=== PATIENT | female | born 1995 | race American Indian/Alaskan Native ===

== ENCOUNTER 2017-09-15 17:09 | Emergency (ER) | payer MEDICAID ==
[2017-09-15 17:09] VITALS: BMI 25.8
[2017-09-15 17:12] VITALS: O2SAT 100
[2017-09-15] MEDS ORDERED: Sodium Chloride 0.9% 1,000 ML IV STA (17:37)
[2017-09-15] MEDS ORDERED: Methotrexate 50 mg/2 ml Inj IM ONE (18:15)
--- NOTE | 2017-09-15 18:29 | CP.PCM.CON ---
<Lora Saunders - Last Filed: 09/15/17 19:01> History of Present Illness - History of Present Illness History of Present Illness: 22 y/o Female , transferred from [facility] for evaluation and treatment of ectopic . Patient initially presented to ER c/o several days of lower abdominal discomfort associated with vaginal bleeding, which patient initially presumed to be her menses. Patient reports pain was different than her usual menses pain. Patient denies any fever, chills, nausea, vomiting or vaginal discharge. Patient is sexually active, last sexual activity a week ago, w/o any protection use. Patient has no intention of getting . ER course: BHcG 3640, WBC 17.8, RH+, Trans Vaginal US: suspicious for an ectopic PMH: Pyelonephritis PSH: Eye surgery x 3 Allg: NKDA Meds: None OBGYN: No hx of STDs, hx of 2 previous abortions Sexual Hx: active with 1 partner, no protection SH: Denies alcohol/smoking or drug use FH: Denies ROS: As per HPI VS: reviewed Review of Systems - Review of Systems All systems: reviewed and no additional remarkable complaints except (lower abdo discomfort) Past Patient History - Infectious Disease Hx of Infectious Diseases: None - Tetanus Immunizations Tetanus Immunization: Unknown - Past Social History Smoking Status: Never Smoked - CARDIAC Hx Cardiac Disorders: No - PULMONARY Hx Respiratory Disorders: No - NEUROLOGICAL Hx Neurological Disorder: No - HEENT Hx HEENT Problems: Yes (Right eye surgery) - RENAL Hx Chronic Kidney Disease: Yes Hx Pyelonephritis: Yes - ENDOCRINE/METABOLIC Hx Endocrine Disorders: No - HEMATOLOGICAL/ONCOLOGICAL Hx Blood Disorders: No - INTEGUMENTARY Hx Dermatological Problems: No - MUSCULOSKELETAL/RHEUMATOLOGICAL Hx Musculoskeletal Disorders: No Hx Falls: No - GASTROINTESTINAL Hx Gastrointestinal Disorders: No - GENITOURINARY/GYNECOLOGICAL Hx Genitourinary Disorders: Yes Hx Urinary Tract Infection: Yes - PSYCHIATRIC Hx Psychophysiologic Disorder: No Hx Substance Use: No - SURGICAL HISTORY Hx Eye Surgery: Yes (R eye x2) Other/Comment: . Right eye surgery - ANESTHESIA Hx Anesthesia: Yes Hx Anesthesia Reactions: No Hx Malignant Hyperthermia: No Meds Allergies/Adverse Reactions: Allergies Allergy/AdvReac Type Severity Reaction Status Date / Time seasonal Allergy CONGESTION Uncoded 09/15/17 17:11 - Medications Medications: Current Medications Sodium Chloride (Sodium Chloride 0.9%) 1,000 mls @ 1,000 mls/hr IV .Q1H STA Stop: 09/15/17 18:36 Last Admin: 09/15/17 17:46 Dose: 1,000 mls/hr Methotrexate 97.5 mg/ IV (SYRINGE) 3.9 mls @ 0 mls/hr IM ONCE ONE PRN Reason: UD Stop: 09/15/17 18:31 Physical Exam - Constitutional Appears: No Acute Distress - Head Exam Head Exam: ATRAUMATIC, NORMAL INSPECTION, NORMOCEPHALIC - Eye Exam Eye Exam: EOMI, Normal appearance, PERRL Pupil Exam: NORMAL ACCOMODATION, PERRL - ENT Exam ENT Exam: Mucous Membranes Moist, Normal Exam - Neck Exam Neck exam: Positive for: Normal Inspection - Respiratory Exam Respiratory Exam: Clear to Auscultation Bilateral, NORMAL BREATHING PATTERN - Cardiovascular Exam Cardiovascular Exam: REGULAR RHYTHM, +S1, +S2 - GI/Abdominal Exam GI & Abdominal Exam: Normal Bowel Sounds, Soft, Tenderness (On deep palpations ) . absent: Distended, Guarding, Rebound - Exam Speculum exam: absent: Vaginal Discharge (closed cervix, blood clot was seen but no tissues or lacerations ) - Extremities Exam Extremities exam: Positive for: normal capillary refill, pedal pulses present. Negative for: pedal edema, tenderness - Back Exam Back exam: absent: CVA tenderness (L), CVA tenderness (R) - Neurological Exam Neurological exam: Alert, CN II-XII Intact, Oriented x3 - Psychiatric Exam Psychiatric exam: Flat Affect - Skin Skin Exam: Dry, Intact, Normal Color, Warm Results - Vital Signs Recent Vital Signs: Last Vital Signs Temp 98.0 F 09/15/17 17:11 Pulse 97 H 09/15/17 17:11 Resp 16 09/15/17 17:11 BP 148/75 09/15/17 17:11 Pulse Ox 100 09/15/17 17:11 Assessment & Plan - Assessment and Plan (Free Text) Assessment: A/P: 22 y/o Female with ectopic - Medical vs Surgical options discussed with patient - Patient educated on ectopic and complications - Patient agrees to Methotrexat treatment - Methotrexat 97.5 mg IM Today - [place] [facility] [place], Scripts given for 09/19 and 09/22 - Patient signs Consent form and understands risks - ER precautions discussed with patient, any bleeding, Fever or acute abdo, come back to ER Case discussed with Dr. Murray and ER attending --- Lora Saunders, PGY-1 <Tyler Murray - Last Filed: 09/15/17 19:53> Results - Vital Signs Recent Vital Signs: Last Vital Signs Temp 98.8 F 09/15/17 19:35 Pulse 78 09/15/17 19:35 Resp 18 09/15/17 19:35 BP 132/76 09/15/17 19:35 Pulse Ox 100 09/15/17 19:35 Assessment & Plan - Assessment and Plan (Free Text) Plan: OB Hospitalist on-call: With PGY, I saw and examined this patient. Agree with note ex Abd exam: no tenderness; not acute abdomen A: Ectopic preg PLAN: Her medical condition and treatment options explained to patient. She understands and her questions answered. She opted for medical treatment with Methotrexate and will follow up on days 4 and 7. She understands if she has increased pain in abdomen to come back to ER, and that she would be evaluated for surgical management. Informed consent obtained. Scripts and copies of labs /sono reports given to pt. - Date & Time Date: 09/15/17 Time: 19:50
[2017-09-15] MEDS ORDERED: METHOTREXATE IM ONE (18:30)
--- NOTE | 2017-09-15 18:49 | ED PDOC ---
HPI: General Adult Time Seen by Provider: 09/15/17 17:14 Chief Complaint (Nursing): Abdominal Pain Chief Complaint (Provider): ectopic History/Exam Limitations: no limitations Recently: Treated By A Physician (rehana) Additional Complaint(s): 22yo sent from [facility] after discovery of ectopic . She denies current abdominal pain or vaginal bleeding. Denies dizziness or presyncope. Denies prior hx of ectopics and denies prior known STDs. [place] ED physician Dr Katz discussed w Dr Rocha who accepted the patient for eval at [facility]. Dr Murray refrigeration mechanic OB immediately paged and evaluated patient in ED. Past Medical History Reviewed: Historical Data, Nursing Documentation, Vital Signs Vital Signs: Last Vital Signs Temp 98.8 F 09/15/17 19:35 Pulse 78 09/15/17 19:35 Resp 18 09/15/17 19:35 BP 132/76 09/15/17 19:35 Pulse Ox 100 09/15/17 19:35 - Medical History PMH: Chronic Kidney Disease Denies: Depression - Family History Family History: States: Unknown Family Hx - Immunization History Hx Tetanus Toxoid Vaccination: No - Home Medications Home Medications: Ambulatory Orders Medication Instructions Recorded No Known Home Med 09/15/17 - Allergies Allergies/Adverse Reactions: Allergies Allergy/AdvReac Type Severity Reaction Status Date / Time seasonal Allergy CONGESTION Uncoded 09/15/17 17:11 Review of Systems Cardiovascular: Negative for: Chest Pain, Orthopnea Respiratory: Negative for: Cough, Shortness of Breath Gastrointestinal: Positive for: Abdominal Pain Genitourinary Female: Positive for: Vaginal Bleeding (trace). Negative for: Pelvic Pain Musculoskeletal: Negative for: Neck Pain, Back Pain Skin: Negative for: Rash, Lesions Neurological: Negative for: Weakness, Numbness, Dizziness Physical Exam - Reviewed Nursing Documentation Reviewed: Yes Vital Signs Reviewed: Yes - Physical Exam Appears: Positive for: Well, Non-toxic Skin: Positive for: Normal Color, Warm. Negative for: Diaphoresis, Pallor Cardiovascular/Chest: Negative for: Tachycardia Respiratory: Negative for: Respiratory Distress Gastrointestinal/Abdominal: Negative for: Tenderness, Guarding Neurologic/Psych: Positive for: Alert, manager quantitative II-XII (intact), Oriented. Negative for: Motor/Sensory Deficits - ECG O2 Sat by Pulse Oximetry: 100 Medical Decision Making Medical Decision Making: Dr Murray evaluated patient and data, he decided methotrexate would be most appropriate treatment. Dr Murray obtained consent, wrote order for methotrexate and I administered medication in L lower outer buttock. She was instructed of risks/benefits/alternatives by OB and I reinforced need for return to ER for any worse pain, dizziness or bleeding. Disposition - Clinical Impression Clinical Impression: Ectopic - Patient ED Disposition Is Patient to be Admitted: No Counseled Patient/Family Regarding: Studies Performed, Diagnosis, Need For Followup - Disposition [facility] Disposition: Routine/Home Disposition Time: 18:50 Condition: STABLE Additional Instructions: Return to ER days 4 and 7 for repeat bloodwork. RETURN TO ER IMMEDIATELY FOR ANY PAIN, WEAKNESS, BLEEDING OR DIZZINESS. Instructions: Ectopic (ED) Forms: [employer] (Greek)
[2017-09-15 19:36] VITALS: BP 132/76; PULSE 78; RESP 18; TEMP 98.8
== END 2017-09-15 19:35 | disposition home or self-care (01) ==
LOC: H.ER 17:09
DX: O00.90 Unspecified ectopic pregnancy without intrauterine pregnancy (principal); N18.9 Chronic kidney disease, unspecified
CPT/HCPCS: 96372; 99283; J7040; J9250

== ENCOUNTER 2017-09-19 15:52 | Emergency (ER) | payer MEDICAID ==
[2017-09-19 15:52] VITALS: BMI 25.8
[2017-09-19 16:20] VITALS: BP 139/84; PULSE 80; RESP 16; TEMP 97.6; O2SAT 100
--- NOTE | 2017-09-19 17:00 | ED PDOC ---
HPI: General Adult Time Seen by Provider: 09/19/17 15:57 Chief Complaint (Nursing): Female Genitourinary Chief Complaint (Provider): Repeat labs History Per: Patient History/Exam Limitations: no limitations Additional Complaint(s): Patient is a 22 y/o female who presents for repeat blood work. Patient was seen at this ED 4 days ago and diagnosed with ectopic . She was given methotrexate and asked to return in 4 days for blood work. She reports improvement of pain and vaginal bleeding. PCP: Goldie Snow Past Medical History Reviewed: Historical Data, Nursing Documentation, Vital Signs Vital Signs: Last Vital Signs Temp 97.6 F 09/19/17 16:16 Pulse 80 09/19/17 16:16 Resp 16 09/19/17 16:16 BP 139/84 09/19/17 16:16 Pulse Ox 100 09/19/17 17:13 - Medical History PMH: Chronic Kidney Disease Denies: Depression - Surgical History Other surgeries: Right eye surgery, - Family History Family History: States: No Known Family Hx, Unknown Family Hx - Social History Current smoker - smoking cessation education provided: No Alcohol: Social Drugs: Denies - Immunization History Hx Tetanus Toxoid Vaccination: No - Home Medications Home Medications: Ambulatory Orders Medication Instructions Recorded No Known Home Med 09/15/17 - Allergies Allergies/Adverse Reactions: Allergies Allergy/AdvReac Type Severity Reaction Status Date / Time seasonal Allergy CONGESTION Uncoded 09/15/17 17:11 Review of Systems ROS Statement: Except As Marked, All Systems Reviewed And Found Negative Physical Exam - Reviewed Nursing Documentation Reviewed: Yes Vital Signs Reviewed: Yes - Physical Exam Appears: Positive for: Well, Non-toxic, No Acute Distress Head Exam: Positive for: ATRAUMATIC, NORMAL INSPECTION, NORMOCEPHALIC Skin: Positive for: Normal Color, Warm, Dry Eye Exam: Positive for: Normal appearance Neck: Positive for: Normal Cardiovascular/Chest: Positive for: Regular Rate, Rhythm Respiratory: Positive for: Normal Breath Sounds. Negative for: Accessory Muscle Use, Respiratory Distress Gastrointestinal/Abdominal: Negative for: Tenderness Neurologic/Psych: Positive for: Alert - ECG O2 Sat by Pulse Oximetry: 100 (RA) Pulse Ox Interpretation: Normal Medical Decision Making Medical Decision Making: Time: 16:21 Initial Plan: --Beta-HCG, Quantitative Beta decreased from 3600 [address] Petersen. Pt to return day 7 for repeat beta-Hcg. Scribe Attestation: Documented by Barbara Malone, acting as a scribe for Halie Dominguez PA-C Provider Scribe Attestation: All medical record entries made by the Scribe were at my direction and personally dictated by me. I have reviewed the chart and agree that the record accurately reflects my personal performance of the history, physical exam, medical decision making, and the department course for this patient. I have also personally directed, reviewed, and agree with the discharge instructions and disposition. Disposition - Clinical Impression Clinical Impression: Ectopic - Patient ED Disposition Is Patient to be Admitted: No - Disposition Disposition: Routine/Home Disposition Time: 17:30 Condition: GOOD Additional Instructions: Please return in 3 days for repeat Labs (beta Hcg). Instructions: Ectopic (ED) Forms: [employer] (Faroese) - POA Present On Arrival: None
== END 2017-09-19 17:36 | disposition home or self-care (01) ==
LOC: H.ER 15:52
DX: O00.90 Unspecified ectopic pregnancy without intrauterine pregnancy (principal)

== ENCOUNTER 2017-09-22 08:33 | Emergency (ER) | payer MEDICAID ==
[2017-09-22 08:35] VITALS: BMI 25.8
[2017-09-22 08:47] VITALS: BP 133/70; PULSE 68; TEMP 98; O2SAT 99
[2017-09-22 08:58] VITALS: RESP 16
--- NOTE | 2017-09-22 09:04 | ED PDOC ---
HPI: General Adult Time Seen by Provider: 09/22/17 08:57 Chief Complaint (Nursing): Female Genitourinary Additional Complaint(s): Pt. was dx with ectopic . Was given methotrexate. Had repeat bhcg after tx x2. Beta 1516 on last visit 09/19/17. Case was discussed with Dr. Petersen at that time and advised to return in 7 days for repeat beta-Hcg. No dizziness, weakness, headaches, abd pain, dysuria. Minimal vaginal bleeding. Past Medical History Reviewed: Nursing Documentation, Vital Signs Vital Signs: Last Vital Signs Temp 98.0 F 09/22/17 08:53 Pulse 68 09/22/17 08:53 Resp 16 09/22/17 08:53 BP 133/70 09/22/17 08:53 Pulse Ox 99 09/22/17 09:06 - Medical History PMH: Denies: Depression Other PMH: eye issues chronically - Surgical History Surgical History: No Surg Hx - Family History Family History: States: Unknown Family Hx - Social History Current smoker - smoking cessation education provided: No Alcohol: None Drugs: Denies - Immunization History Hx Tetanus Toxoid Vaccination: No - Home Medications Home Medications: Ambulatory Orders Medication Instructions Recorded No Known Home Med 09/15/17 - Allergies Allergies/Adverse Reactions: Allergies Allergy/AdvReac Type Severity Reaction Status Date / Time seasonal Allergy CONGESTION Uncoded 09/15/17 17:11 Review of Systems ROS Statement: Except As Marked, All Systems Reviewed And Found Negative Genitourinary Female: Positive for: Vaginal Bleeding (mild) Physical Exam - Reviewed Nursing Documentation Reviewed: Yes Vital Signs Reviewed: Yes - Physical Exam Appears: Positive for: Non-toxic, No Acute Distress Head Exam: Positive for: ATRAUMATIC, NORMAL INSPECTION, NORMOCEPHALIC Neck: Positive for: Normal, Painless ROM Cardiovascular/Chest: Positive for: Regular Rate, Rhythm Respiratory: Positive for: CNT, Normal Breath Sounds Gastrointestinal/Abdominal: Positive for: Normal Exam, Bowel Sounds, Soft. Negative for: Tenderness Back: Positive for: Normal Inspection. Negative for: L CVA Tenderness, R CVA Tenderness Extremity: Positive for: Normal ROM. Negative for: Tenderness, Pedal Edema Neurologic/Psych: Positive for: Alert, Oriented - Laboratory Results Interpretation Of Abn Labs: 1016.3 bhcg - ECG O2 Sat by Pulse Oximetry: 99 Pulse Ox Interpretation: Normal - Progress ED Course And Treament: 1100: Spoke with Dr. Murray. Made aware of presentation, history, and findings. Wants pt. to fu with clinic in 1 week for repeat bhcg. Pt. with no symptoms currently. No pain. Disposition - Clinical Impression Clinical Impression: Ectopic - Patient ED Disposition Is Patient to be Admitted: No Counseled Patient/Family Regarding: Studies Performed, Diagnosis, Need For Followup - Disposition [facility] (See the clinic in 1 week for repeat blood work and bhcg. ) [facility] [Outside] Disposition: Routine/Home Disposition Time: 11:13 Condition: STABLE Additional Instructions: Return if not better in 3 days. Go to the clinic in 1 week for repeat bhcg. If not able to go in 1 week, come back to the ER. Instructions: Ectopic (ED) Forms: [facility] (Ukrainian)
== END 2017-09-22 11:48 | disposition home or self-care (01) ==
LOC: H.ER 08:33
DX: O00.90 Unspecified ectopic pregnancy without intrauterine pregnancy (principal)